=== PATIENT | male | born 1955 | race Caucasian/White ===

== ENCOUNTER 2016-06-30 15:48 | Emergency (ER) | payer BC, OTHER ==
[~2016-06-30] VITALS: Ht 172.7 cm; Wt 111.1 kg
[~2016-06-30 15:48] MED LIST: APIX5TAB2 PO; ASP325T PO; ASP81CT PO; CLN.1T PO; CLON-316 PO; DIGO250T PO; DILT360C26 PO; FRSM40T PO; LISI20TA PO; LOVA20TA2 PO; METO50TA7 PO; PANT40TA2 PO; POTA20LI2 PO; RANI75TA30 PO
[2016-06-30 16:28] LABS: BASOPHILS % (AUTO) 1 % (0-10); EOSINOPHILS # (AUTO) 0.1 10^3/uL (0.0-0.3); EOSINOPHILS % (AUTO) 1 % (0-10); LYMPHOCYTES # (AUTO) 1.1 X 10^3 (1.0-4.0); LYMPHOCYTES % (AUTO) 17 % (12-44); MEAN CORPUSCULAR HEMOGLOBIN 27 PG (25-34); MEAN CORPUSCULAR HGB CONC 33 G/DL (32-36); MEAN CORPUSCULAR VOLUME 81 FL (80-99); MONOCYTES # (AUTO) 0.8 X 10^3 (0.0-1.0); MONOCYTES % (AUTO) 12 % (0-12); NEUTROPHILS # (AUTO) 4.4 X 10^3 (1.8-7.8); NEUTROPHILS % (AUTO) 69 % (42-75); PLATELET COUNT 152 10^3/uL (130-400); RED BLOOD COUNT 5.12 10^6/uL (4.35-5.85); RED CELL DISTRIBUTION WIDTH 16.5 % (10.0-14.5); WHITE BLOOD COUNT 6.4 10^3/uL (4.3-11.0)
[2016-06-30] MEDS ORDERED: DILTIAZEM DRIP 100 MG in SODIUM CHLORIDE (ADD-VANTAGE) 100 ML IV SCH (16:30)
[2016-06-30] MEDS ORDERED: DILTIAZEM 25 MG/5 ML INJ (CARDIZEM) VIAL IVP ONE (16:30)
--- NOTE | 2016-06-30 16:32 | ED General ---
General Chief Complaint: Abdominal/GI Problems Stated Complaint: HERNIA Nursing Triage Note: Pt here to c/o chronic hernia issues known since 2012. Pt unaware BP elevated presently and has not done fu visits wTeresa Carrasco or Fernie scheduled in Feb/Mar. States pain along with SOA with walking alot or heavy lifting. Nursing Sepsis Screen: No Definite Risk Source of Information: Patient Exam Limitations: No Limitations History of Present Illness Time Seen by Provider: 16:28 Initial Comments To ER with several complaints. His initial complaint was of an umbilical hernia which is been present since 2012. He was evaluated by a surgeon and mechanical striper at that time and found to have congestive heart failure so surgery was postponed and ultimately never occurred. He denies any pain to this umbilical hernia, no nausea or vomiting and continues to pass gas and having bowel movements today. However upon arrival to the room he is noted to be tachycardic and he further reports a history of shortness of breath with any exertion, chest pain with exertion for the past 2-3 months. Symptoms today are no worse or different than usual. He has a history of atrial fibrillation and is on Eliquis, lasix, metoprolol. He has in the past followed with Dr. Carrasco and was supposed to follow up every 6 months with him. His most recent visit with Dr. Carrasco was scheduled to be in March 2016 but he states he was too far behind at work work and could not make the appointment. Medication list is provided by external medication history link as the patient is not able to verbalize to us what medications he takes or what his medical conditions are. Timing/Duration: 1-2 Days Severity: Moderate Associated Systoms: Chest PainNo Cough, No Fever/Chills, Shortness of AirNo Syncope, No Weakness Allergies and Home Medications Allergies Coded Allergies: No Known Drug Allergies (Unverified , 10/09/12) Home Medications Apixaban 5 Mg Tablet 5 MG PO BID (Reported) Aspirin 81 Mg Chew 81 MG PO DAILY (Reported) Digoxin 250 Mcg Tablet 250 MCG PO DAILY (Reported) Diltiazem Hcl 360 Mg Cap.sr.24h 360 MG PO DAILY (Reported) Furosemide 40 Mg Tab 80 MG PO DAILY (Reported) Lisinopril 20 Mg Tablet 20 MG PO DAILY (Reported) Lovastatin 20 Mg Tablet 20 MG PO DAILY WITH SUPPER (Reported) Metoprolol Succinate 50 Mg Tab.sr.24h 50 MG PO DAILY (Reported) Pantoprazole Sodium 40 Mg Tablet.dr #15 40 MG PO DAILY Prescribed by: RORY NEWMAN on 01/05/151 Potassium Chloride 20 Meq/15 Ml Liquid 10 MEQ PO DAILY (Reported) Ranitidine Hcl 75 Mg Tablet 150 MG PO NEEDED (Reported) PRN ACID Constitutional: see HPI EENTM: see HPI Respiratory: see HPINo cough, orthopnea short of breath Cardiovascular: see HPI chest pain (none currently but he does have chest pain with exertion) Musculoskeletal: no symptoms reported Skin: no symptoms reported Psychiatric/Neurological: No Symptoms Reported Hematologic/Lymphatic: No Symptoms Reported Past Wpsuxlj-Rohrkb-Rukunf Hx Patient Social History Alcohol Use: Rarely Uses Recreational Drug Use: No Smoking Status: Former Smoker Type Used: Cigars, Cigarettes Former Smoker/When Quit: Apr 16, 1974 Recent Foreign Travel: No Contact w/Someone Who Travel: No Recent Infectious Disease Expo: No Recent Hopitalizations: No Immunizations Up To Date Date of Pneumonia Vaccine: Oct 15, 2012 Seasonal Allergies Seasonal Allergies: No Surgeries HX Surgeries: Yes (KNEE ARTHROSCOPY, CARDIAC CATH. ) Surgeries: Orthopedic Respiratory Hx Respiratory Disorders: No Cardiovascular Hx Cardiac Disorders: Yes (CHF) Cardiac Disorders: Atrial Fibrillation, Hypertension Neurological Hx Neurological Disorders: No Reproductive System Hx Reproductive Disorders: No Genitourinary Hx Genitourinary Disorders: No Gastrointestinal Hx Gastrointestinal Disorders: Yes (HERNIA) Gastrointestinal Disorders: Abdominal Hernia, Gastroesophageal Reflux Musculoskeletal Hx Musculoskeletal Disorders: No Endocrine Hx Endocrine Disorders: Yes (OBESITY) HEENT HX ENT Disorders: No Cancer Hx Cancer: No Psychosocial Hx Psychiatric Problems: No Integumentary HX Skin/Integumentary Disorder: No Blood Transfusions Hx Blood Disorders: No Adverse Reaction to a Blood Tr: No Family Medical History Significant Family History: Heart Disease, Stroke Physical Exam Vital Signs Vital Sign - Last 12Hours 06/30/16 16:03 Temp 99.0 Pulse 128 Resp 20 B/P 131/104 Pulse Ox 95 O2 Delivery Room Air Capillary Refill : Less Than 3 Seconds General Appearance: No Apparent Distress WD/WN Eyes: Bilateral Eye EOMI, Bilateral Eye Normal Inspection, Bilateral Eye PERRL HEENT: PERRL/EOMI TMs Normal Neck: Full Range of Motion Normal Inspection Non Tender Respiratory: Lungs Clear Normal Breath Sounds No Accessory Muscle Use No Respiratory Distress Cardiovascular: Normal Peripheral Pulses Irregularly Irregular Other (atrial fibrillation noted on plant guide with a rate of 105 to a maximum of upper 120s) Gastrointestinal: Non Tender Soft Neurologic/Psychiatric: Alert Oriented x3 No Motor/Sensory Deficits Skin: Normal Color Warm/Dry Focused Exam Lactic Acid Level Laboratory Tests Test 06/30/16 16:15 Alanine Aminotransferase (ALT/SGPT) 13U/L (0-55) Albumin 3.6G/DL (3.2-4.5) Alkaline Phosphatase 74U/L (40-136) Anion Gap 10MMOL/L (5-14) Aspartate Amino Transf (AST/SGOT) 13U/L (5-34) B-Type Natriuretic Peptide 855.5PG/ML (<100.0) H BUN/Creatinine Ratio 15 Blood Urea Nitrogen 25MG/DL (7-18) H Calcium Level 9.0MG/DL (8.5-10.1) Carbon Dioxide Level 23MMOL/L (21-32) Chloride Level 106MMOL/L (98-107) Creatinine 1.62MG/DL (0.60-1.30) H Estimat Glomerular Filtration Rate 44 Glucose Level 94MG/DL (70-105) Magnesium Level 1.6MG/DL (1.8-2.4) L Potassium Level 4.1MMOL/L (3.6-5.0) Sodium Level 139MMOL/L (135-145) Total Bilirubin 1.9MG/DL (0.1-1.0) H Total Protein 5.9G/DL (6.4-8.2) L Troponin I < 0.30NG/ML (<0.30) Progress/Results/Core Measures Results/Orders Lab Results Laboratory Tests Test 06/30/16 16:15 Range/Units Alanine Aminotransferase (ALT/SGPT) 13 0-55 U/L Albumin 3.6 3.2-4.5 G/DL Alkaline Phosphatase 74 40-136 U/L Anion Gap 10 5-14 MMOL/L Aspartate Amino Transf (AST/SGOT) 13 5-34 U/L B-Type Natriuretic Peptide 855.5 H <100.0 PG/ML BUN/Creatinine Ratio 15 Basophils # (Auto) 0.0 0.0-0.1 10^3/uL Basophils (%) (Auto) 1 0-10 % Blood Urea Nitrogen 25 H 7-18 MG/DL Calcium Level 9.0 8.5-10.1 MG/DL Carbon Dioxide Level 23 21-32 MMOL/L Chloride Level 106 98-107 MMOL/L Creatinine 1.62 H 0.60-1.30 MG/DL Eosinophils # (Auto) 0.1 0.0-0.3 10^3/uL Eosinophils (%) (Auto) 1 0-10 % Estimat Glomerular Filtration Rate 44 Glucose Level 94 70-105 MG/DL Hematocrit 42 40-54 % Hemoglobin 13.6 13.3-17.7 G/DL Lymphocytes # (Auto) 1.1 1.0-4.0 X 10^3 Lymphocytes (%) (Auto) 17 12-44 % Magnesium Level 1.6 L 1.8-2.4 MG/DL Mean Corpuscular Hemoglobin 27 25-34 PG Mean Corpuscular Hemoglobin Concent 33 32-36 G/DL Mean Corpuscular Volume 81 80-99 FL Mean Platelet Volume 12.0 H 7.4-10.4 FL Monocytes # (Auto) 0.8 0.0-1.0 X 10^3 Monocytes (%) (Auto) 12 0-12 % Neutrophils # (Auto) 4.4 1.8-7.8 X 10^3 Neutrophils (%) (Auto) 69 42-75 % Platelet Count 152 130-400 10^3/uL Potassium Level 4.1 3.6-5.0 MMOL/L Red Blood Count 5.12 4.35-5.85 10^6/uL Red Cell Distribution Width 16.5 H 10.0-14.5 % Sodium Level 139 135-145 MMOL/L Total Bilirubin 1.9 H 0.1-1.0 MG/DL Total Protein 5.9 L 6.4-8.2 G/DL Troponin I < 0.30 <0.30 NG/ML White Blood Count 6.4 4.3-11.0 10^3/uL My Orders Orders-CATHY COOLEY PHYSICIAN'S AIDE Cbc With Automated Diff (06/30/16 16:21) Troponin I (06/30/16 16:21) Continuous Ekg Monitoring (06/30/16 16:21) Ekg Tracing (06/30/16 16:21) Saline Lock/Iv-Start (06/30/16 16:21) Chest 1 View, Ap/Pa Only (06/30/16 16:21) Magnesium (06/30/16 16:21) BNP (06/30/16 16:21) Sodium Chloride (Ad... W/Diltiazem Drip (06/30/16 16:30) Diltiazem Injection (Cardizem Injection) (06/30/16 16:30) Comprehensive Metabolic Panel (06/30/16 16:37) Furosemide Injection (Lasix Injection) (06/30/16 17:30) Medications Given in ED Current Medications Medications Dose Ordered Sig/Adryan Route Start Time Stop Time Status Last Admin Dose Admin Diltiazem HCl 5 mg ONCE ONCE IVP 06/30/16 16:30 06/30/16 16:31 DC 06/30/16 16:37 5 MG Furosemide 40 mg ONCE ONCE IVP 06/30/16 17:30 06/30/16 17:31 DC 06/30/16 17:28 40 MG Vital Signs/I&O Vital Sign - Last 12Hours 06/30/16 06/30/16 06/30/16 16:03 16:37 18:40 Temp 99.0 99.0 99.0 Pulse 128 128 124 Resp 20 20 20 B/P 131/104 131/104 Pulse Ox 95 95 97 O2 Delivery Room Air Blood Pressure Mean: 113 Diagnostic Imaging Diagonstic Imaging: Xray Plain Films/CT/US/NM/MRI: chest Comments NAME: SOPHIA ELLSWORTH [facility] REC#: [id number] PT STATUS: REG ER : 1955 PHYSICIAN: CATHY COOLEY APRN ADMIT DATE: 06/30/16/ER Draft Date of Exam:06/30/16 CHEST 1 VIEW, AP/PA ONLY EXAMINATION: Portable erect AP chest at 4:30 p.m. INDICATION: Shortness of breath. FINDINGS: The cardiomegaly noted on 01/05/2015 is again evident and no different. There are coarse perihilar markings in the left infrahilar region. These do seem more prominent than noted on the prior exam, and there could be an element of mild pneumonia/atelectasis in this area. Clinical followup is recommended. The lungs are otherwise clear. There is no sign of a pleural effusion. The mediastinum is not widened. The osseous structures are intact. IMPRESSION: 1. The prominence of the perihilar markings in the left infrahilar region when compared to the prior exam does raise the question of mild pneumonia/atelectasis in this area. Clinical followup is recommended. 2. There is no acute cardiopulmonary abnormality noted otherwise. Dictated on workstation # [id number] Dict: 06/30/16 1638 Trans: 06/30/16 1645 [id number] Interpreted by: FAUSTINO ESCAMILLA MD Electronically signed by: Arminda Communication Progress Notes [id number] did discuss the case with Dr. Emery who is on-call for cardiology. He does recommend a dose of IV Lasix here to improve the patient's symptoms and increasing the dose of Lasix from 3 times a week (with the patient states he takes) to daily for 3 days then 3 times a week. Patient's preference would be to be treated in the outpatient setting rather than admission. Dr. Emery agrees with this since the patient's findings of atrial fibrillation and CHF are incidental in nature and have been ongoing for 2-3 months and are known to his mechanical striper and no different today than previously. This is not what brought into the emergency room, it was his umbilical hernia as a chief complaint. We did give 1 dose of Cardizem 10 mg IV with no reduction in heart rate however did drop his blood pressure to [address] Emery would recommend increasing the Toprol-XL from 50 mg daily to 50 mg twice a day and follow-up with Dr. Carrasco in the outpatient setting. In regards to the umbilical hernia, this is not strangulated and there is no bowel obstruction so the patient should follow-up with a surgeon in the outpatient setting as well. Impression Impression: Primary Impression: Umbilical hernia Qualified Code: K42.9 - Umbilical hernia without obstruction or gangrene Additional Impressions: Chronic renal insufficiency Qualified Code: N18.9 - Chronic kidney disease, unspecified Atrial fibrillation Qualified Code: I48.1 - Persistent atrial fibrillation Stable angina Disposition: 01 HOME, SELF-CARE Condition: Stable Departure-Patient Inst. Decision time for Depature: 18:20 Referrals: BEE RICHTER BRETT D DO HAMMAD, ALI MD FACP FAC CCDS ERIN PINA MD, TAKAAKI MD PAONI, ADAM S DO (PCP/Family) Primary Care Physician Patient Instructions: CHF, Umbilical Hernia, Adult Add. Discharge Instructions: 1. Return to the emergency room if you develop any pain around the umbilical hernia, if he stopped passing gas or having bowel movements or if he started vomiting 2. Return to ER if you have any worsening shortness of breath, chest pain, passing out or feeling like he may pass out. Otherwise, I send a copy of your labs to Dr. Carrasco in your to call him Sunday morning at 8 a.m. to make an appointment to be seen next week. In the meantime, U should take your Lasix daily for the next 3 days starting tomorrow then go back to Lasix 3 times a week. 3. Your metoprolol that you take 1 time daily 50 mg should be increased to twice daily 4. You may also call one of the surgeons listed to make an appointment to be seen for the umbilical hernia. However they want you to be cleared from a cardiology standpoint prior to surgery and in fact may choose not to operate at all if this hernia is not causing you symptoms All discharge instructions reviewed with patient and/or family. Voiced understanding. Copy Copies To 1: JA CARRASCO MD FACP FACC CCDS; ROLANDO PARSONS PETER J APRN Jun 30, 2016 16:32
[2016-06-30 16:39] LABS: MAGNESIUM 1.6 MG/DL (1.8-2.4)
--- NOTE | 2016-06-30 16:46 | Diagnostic Imaging Report ---
EXAMINATION: Portable erect AP chest at 4:30 p.m. INDICATION: Shortness of breath. FINDINGS: The cardiomegaly noted on 01/05/2015 is again evident and no different. There are coarse perihilar markings in the left infrahilar region. These do seem more prominent than noted on the prior exam, and there could be an element of mild pneumonia/atelectasis in this area. Clinical followup is recommended. The lungs are otherwise clear. There is no sign of a pleural effusion. The mediastinum is not widened. The osseous structures are intact. IMPRESSION: 1. The prominence of the perihilar markings in the left infrahilar region when compared to the prior exam does raise the question of mild pneumonia/atelectasis in this area. Clinical followup is recommended. 2. There is no acute cardiopulmonary abnormality noted otherwise. Dictated by: Dictated on workstation # [id number]
[2016-06-30 16:52] LABS: TROPONIN I < 0.30 NG/ML (<0.30)
[2016-06-30 16:55] LABS: ALBUMIN 3.6 G/DL (3.2-4.5); BILIRUBIN,TOTAL 1.9 MG/DL (0.1-1.0); CREATININE SERUM 1.62 MG/DL (0.60-1.30); POTASSIUM 4.1 MMOL/L (3.6-5.0); TOTAL PROTEIN 5.9 G/DL (6.4-8.2)
[2016-06-30] MEDS ORDERED: FUROSEMIDE 40 MG/4 ML INJ (LASIX) IVP ONE (17:30)
[2016-06-30 18:40] VITALS: BP 128/95
== END 2016-06-30 18:40 | disposition home or self-care (01) ==
LOC: EDUNIT# 15:48 → ER 15:50
DX: K42.9 Umbilical hernia without obstruction or gangrene (principal); I48.2 Chronic atrial fibrillation; I12.9 Hypertensive chronic kidney disease with stage 1 through stage 4 chronic kidney disease, or unspecified chronic kidney disease; N18.9 Chronic kidney disease, unspecified; E66.9 Obesity, unspecified; Z79.82 Long term (current) use of aspirin; Z79.899 Other long term (current) drug therapy; Z87.891 Personal history of nicotine dependence
CPT/HCPCS: 36415; 71010; 80053; 83735; 83880; 84484; 85025; 93005; 96365; 96375

== ENCOUNTER → 2016-07-14 | Outpatient (CLI) | payer BC ==
[~2016-07-14] MED LIST changes: +ALPH1TAB8 PO; +APIX5TAB PO; +DILT240C53 PO; +FURO40TA4 PO; +LISI-552 PO; +METO-274 PO; +PANT40TA3 PO; +POTA10TA10 PO
--- NOTE | 2016-07-15 09:06 | ECHOCARDIOGRAPHY REPORT ---
PROCEDURE PHYSICIAN: JA DILLON DATE OF PROCEDURE: 07/14/2016 TWO DIMENSIONAL ECHOCARDIOGRAM REPORT PRIMARY PHYSICIAN: OTHER PHYSICIAN: REFERRING PHYSICIAN: Dr. Enciso ORDERING PHYSICIAN: INDICATION FOR THE PROCEDURE: 1. Congestive heart failure. 2. Paroxysmal atrial fibrillation. MEASUREMENTS DERIVED VALUES LV DIAMETER (LAX) NORMALS NORMALS Diastolic 5.2 (3.6-5.2) Eject. Fract. (60%+/-6%) Systolic (2.3-3.9) Diastolic Vol. % Shortening (0.22-0.42) Systolic Vol. Aortic Root IVS THICKNESS Diastolic 1.3 (0.6-1.1) LVPW THICKNESS Diastolic 1.2 (0.6-1.1) LA DIAMETER Systolic 4.4 (2.1-3.7) DESCRIPTION: Two-dimensional echocardiography shows marked impairment of global left ventricular systolic function. Left ventricular ejection fraction is approximately 25%. Aortic, mitral and tricuspid valve leaflets show good leaflet excursion. There is global hypokinesis of the left ventricle. Doppler imaging shows mild mitral and tricuspid regurgitation. Is mild enlargement of the left atrium. There is mild concentric left ventricular hypertrophy. There is no significant pericardial effusion. There is no Doppler evidence of any significant valvular stenosis. Pulmonary artery systolic pressure is estimated to be approximately 30 mmHg. There is no evidence of any significant intracardiac shunt on this transthoracic echocardiographic study. Inferior vena cava appears to be moderately dilated. It exhibits partial inspiratory collapse. CONCLUSIONS: 1. Impairment of global left ventricular systolic function with global hypokinesis and left ventricular ejection fraction of approximately 25%. 2. Mild mitral and tricuspid regurgitation. 3. Pulmonary artery systolic pressure is estimated to be approximately 30 mmHg. 4. No evidence of significant valvular stenosis. 5. Mild concentric left ventricular hypertrophy. Job ID: [id number] Dictated Date: 07/14/2016 17:19:28 Business Strategist Date: 07/15/2016 08:59:30 / cass
== END ==
LOC: CARD 13:04
PROVIDERS: ATTEND Internal Medicine Cardiovascular Disease
DX: I48.0 Paroxysmal atrial fibrillation (principal); I50.31 Acute diastolic (congestive) heart failure; K42.9 Umbilical hernia without obstruction or gangrene; G47.39 Other sleep apnea
CPT/HCPCS: 93306

== ENCOUNTER 2016-07-18 08:08 | Day surgery (SDC) | payer BC ==
[~2016-07-18] VITALS: Ht 172.7 cm; Wt 110.3 kg
[2016-07-18] VITALS (13 sets, daily range): BP systolic 104–133; BP diastolic 71–97
[~2016-07-18 08:08] MED LIST changes: -ALPH1TAB8 PO; -APIX5TAB PO; -DILT240C53 PO; -FURO40TA4 PO; -LISI-552 PO; -METO-274 PO; -PANT40TA3 PO; -POTA10TA10 PO
[2016-07-18] MEDS ORDERED: NS IV 1000 ML 1,000 ML IV SCH (08:30)
[2016-07-18] MEDS ORDERED: NS IV 1000 ML 1,000 ML ONE (08:35)
[2016-07-18] MEDS ORDERED: HEParin (CATH LAB) 2,000 ML IV ONE (08:35)
[2016-07-18] MEDS ORDERED: LIDOCAINE 1% INJ 20 ML (XYLOCAINE) VIAL ONE (08:35)
[2016-07-18 09:08] LABS: INR 1.4 (0.8-1.4); PROTHROMBIN TIME PATIENT 16.8 SEC (12.2-14.7)
[2016-07-18 09:20] LABS: BILIRUBIN,TOTAL 1.5 MG/DL (0.1-1.0); CALCIUM 9.4 MG/DL (8.5-10.1); CREATININE SERUM 1.76 MG/DL (0.60-1.30); POTASSIUM 4.1 MMOL/L (3.6-5.0); TOTAL PROTEIN 7.1 G/DL (6.4-8.2)
[2016-07-18] MEDS ORDERED: POTA10TA10 PO (09:35)
[2016-07-18] MEDS ORDERED: METO-274 PO (09:35)
[2016-07-18] MEDS ORDERED: PANT40TA3 PO (09:35)
[2016-07-18] MEDS ORDERED: LOVA20TA2 PO (09:35)
[2016-07-18] MEDS ORDERED: APIX5TAB PO (09:35)
[2016-07-18] MEDS ORDERED: LISI-552 PO (09:35)
[2016-07-18] MEDS ORDERED: ALPH1TAB8 PO (09:39)
[2016-07-18] MEDS ORDERED: FURO40TA4 PO (09:39)
[2016-07-18] MEDS ORDERED: DILT240C53 PO (09:39)
[2016-07-18 10:39] LABS: MEAN PLATELET VOLUME 12.7 FL (7.4-10.4); RED BLOOD COUNT 5.49 10^6/uL (4.35-5.85); RED CELL DISTRIBUTION WIDTH 18.5 % (10.0-14.5)
[2016-07-18] MEDS ORDERED: fentaNYL INJECTION 100 MCG/2 ML AMP ONE (10:50)
[2016-07-18] MEDS ORDERED: MIDAZOLAM 5 MG/5 ML (VERSED) VIAL ONE (10:50)
[2016-07-18] MEDS ORDERED: diphenhydrAMINE 50 MG/ML INJ (BENADRYL) ONE (10:51)
--- NOTE | 2016-07-18 11:08 | Cardiac Procedure Note-CS/ASA ---
Pre-Procedure Note Pre-Op Procedure Note H&P Reviewed The H&P was reviewed, patient examined and no changes noted. Date H&P Reviewed: Jul 18, 2016 Time H&P Reviewed: 11:08 Conscious Sedation Pre-Proced Time Reviewed: 11:08 ASA Class: 3 Airway Mallampati Classification: (prairie band appropriate class) I. II. III, IV Lungs Heart ASA score ASA 1: a normal healthy patient ASA 2: a patient with a mild systemic disease (mid diabetes, controlled hypertension, obesity ASA 3: a patient with a severe systemic disease that limits activity (angina , COPD, prior Myocardial infarction) ASA 4: a patient with an incapacitating disease that is a constant threat to life (CHF, renal failure) ASA 5: a moribund patient not expected to survive 24 hrs. (ruptured aneurysm) ASA 6: a declared brain patient whose organs are being harvested. For emergent operations, add the letter E after the classification Grade 3 Sedation Plan: Analgesia, Amnesia, Plan communicated to team members, Discussed options with patient/fam, Discussed risks with patient/fam Note The patient is an appropriate candidate to undergo the planned procedure, sedation, and anesthesia. The patient immediately re-assessed prior to indication. JA DILLON MD FACP FAC CCDS Jul 18, 2016 11:08
[2016-07-18] MEDS: NS IV 1000 ML 1,000 ML IV SCH ×2 (11:55→17:28)
[2016-07-18] MEDS ORDERED: PATIENT MAY USE OWN MEDS, ALL PO SCH (12:00)
[2016-07-18] MEDS ORDERED: DIGOXIN 0.25 MG/ML (LANOXIN) 2 ML AMP IV NR (12:00)
[2016-07-18] MEDS ORDERED: FUROSEMIDE 40 MG/4 ML INJ (LASIX) IVP NR (12:00)
[2016-07-18] MEDS ORDERED: meTOprolol SUCCINATE 100 MG (TOPROL XL) TAB PO NR (18:30)
[2016-07-18] MEDS: APIXABAN 5 MG (ELIQUIS) TABLET PO SCH (20:12)
[2016-07-18] MEDS ORDERED: ALPHA D GALACTOSIDASE PO SCH (21:00)
[2016-07-18] MEDS ORDERED: SIMvastatin 10 MG (ZOCOR) TAB PO SCH (21:00)
[2016-07-19] MEDS: NS IV 1000 ML 1,000 ML IV SCH (03:35)
[2016-07-19 04:00] VITALS: BP 106/89
[2016-07-19 04:08] LABS: MEAN PLATELET VOLUME 12.1 FL (7.4-10.4); RED BLOOD COUNT 5.18 10^6/uL (4.35-5.85); WHITE BLOOD COUNT 6.2 10^3/uL (4.3-11.0)
[2016-07-19 04:37] LABS: CALCIUM 8.7 MG/DL (8.5-10.1); CREATININE SERUM 1.63 MG/DL (0.60-1.30); POTASSIUM 4.2 MMOL/L (3.6-5.0)
[2016-07-19 07:54] VITALS: BP 135/85
[2016-07-19] MEDS: APIXABAN 5 MG (ELIQUIS) TABLET PO SCH (07:57)
--- NOTE | 2016-07-19 08:45 | Progress Note-Cardiology ---
Cardiology SOAP Progress Note Subjective: Sitting up in bed. No c/o CP, SOB, palpitations, syncope or near syncope. No c /o right groin pain. Objective: I&O/Vital Signs Vital Sign - Last 12Hours 07/18/16 07/19/16 07/19/16 07/19/16 23:57 01:00 04:00 07:03 Temp 98.4 96.8 Pulse 84 94 87 94 Resp 19 18 B/P (MAP) 122/83 106/89 Pulse Ox 91 99 O2 Delivery Room Air Room Air 07/19/16 07:54 Temp 97.5 Pulse 68 Resp 18 B/P (MAP) 135/85 Pulse Ox 98 O2 Delivery Room Air Weight (Pounds): 243 Weight (Ounces): 3.0 Weight (Calculated Kilograms): 110.988797 Side: right Condition: DP/PT pulses palpable, extremity w/d/p Constitutional: AAO x 3 Respiratory: accessory muscle use, respiratory distress, chest expansion is symmetric, chest is bilaterally symmetric, lungs clear to auscultation Cardiovascular: irregularly irregular, No JVD, S1 and S2 Gastrointestional: No tender, soft, round, audible bowel sounds Extremities: No significant edema Neurologic/Psychiatric: grossly intact Results/Procedures: Labs Laboratory Tests 07/19/16 03:40: White Blood Count 6.2, Red Blood Count 5.18, Hemoglobin 13.6, Hematocrit 43, Mean Corpuscular Volume 82, Mean Corpuscular Hemoglobin 26, Mean Corpuscular Hemoglobin Concent 32, Red Cell Distribution Width 18.0H, Platelet Count 188, Mean Platelet Volume 12.1H, Sodium Level 139, Potassium Level 4.2, Chloride Level 105, Carbon Dioxide Level 22, Anion Gap 12, Blood Urea Nitrogen 35H, Creatinine 1.63H, Estimat Glomerular Filtration Rate 44, BUN/Creatinine Ratio 21 , Glucose Level 99, Calcium Level 8.7 Procedures S/P cardiac cath on 07-18-16. Please refer to Dr. Dillon's cardiac cath report for details. A/P: Assessment: Cardiac cath of July 18, 2016 showed mild to mod diffuse CAD which is unchanged from cardiac cath of September 2012. Mod elevated LVEDP. Chronic systolic CHF (presentation to ER on 06/30/16) - clinically compensated MPI of January 21, 2015 indicated a small amount of basal interior ischemia. Normal regional wall motion. LVEF 71%. Normal LV cavity size The patient is currently in a fib with a fairly controlled rate Nonischemic cardiomyopathy during initial diagnosis with atrial fibrillation several years ago. CM had resolved, but most recent echo of 07/14/16 shows recurrence: LVEF 25%, global hypokinesis, PASP 30 mmHg, mild conc LVH Chronic antiocoagulation with Eliquis Suspected sleep apnea syndrome for which studies have been advised but he has not followed through. Obesity with a body mass index of approximately 37.25. Weight loss has been advised . History of hypertension, currently controlled. Hyperlipidemia, being treated with lovastatin, managed by Dr Enciso. Chronic, reducible umbilical hernia, followed by his pcp Plan: OK to discharge home today He is unclear at times regarding his home medications, therefore, compliance is a concern. We consults Home Health for home visit to help set up medications. Continue current regimen Life Vest external defib has been ordered. rep Negro from [employer] will be her later today to place. We have discussed importance of compliance with medications and treatment plan. He verbalizes understanding. Lab in a week Out patient f/u in [address] Sanchez for out patient sleep studies Physician Assessment Physician Assessment Lungs: good air entry Cor: irreg, rate better controlled A&R * As documented in our note above * Complex management * [facility] and Home Health consult to help with meds at home * Close outpatient f/u * Compliance with meds advised * Results of cath reviewed and discussed GEOVANI FORTUNE Jul 19, 2016 08:45 JA DILLON MD [facility] Jul 19, 2016 09:58
[2016-07-19] MEDS ORDERED: meTOprolol SUCCINATE 100 MG (TOPROL XL) TAB PO SCH (09:00)
[2016-07-19] MEDS ORDERED: lisINopril 20 MG (ZESTRIL) TAB PO SCH (09:00)
[2016-07-19] MEDS ORDERED: PANTOPRAZOLE 40 MG (PROTONIX) TAB PO SCH (09:00)
[2016-07-19] MEDS ORDERED: ASPIRIN 81 MG CHEW (CHILDREN'S ASA) PO SCH (09:00)
[2016-07-19] MEDS ORDERED: DILTIAZEM 240 MG (CARDIZEM CD) CAP PO SCH (09:00)
[2016-07-19] MEDS ORDERED: KCL 10 MEQ TAB (MICRO K) PO SCH (09:00)
[2016-07-19] MEDS ORDERED: FUROSEMIDE 40 MG (LASIX) TAB PO SCH (09:00)
--- NOTE | 2016-07-19 09:26 | Discharge Inst-Cardiology ---
Discharge Inst-Cardiac Discharge Medications Continued Medications: [id number]-Oycwclxhskuwc (Beano) 150 Unit Tablet 450 UNIT PO BID, TAB Apixaban (Eliquis) 5 Mg Tablet 5 MG PO BID LAST FILLED 06/12/16 #60 Aspirin (Aspirin 81 Mg Chew Tab) 81 Mg Chew 81 MG PO DAILY Diltiazem HCl (Cartia Xt) 240 Mg Cap.er.24h 240 MG PO DAILY, CAP HAS NOT PICKED UP FROM PHARMACY YET Furosemide (Furosemide) 40 Mg Tablet 40 MG PO DAILY, TAB Lisinopril (Lisinopril) 20 Mg Tablet 20 MG PO DAILY Lovastatin (Lovastatin) 20 Mg Tablet 20 MG PO HS Metoprolol Succinate (Metoprolol Succinate) 100 Mg Tab.er.24h 100 MG PO DAILY Pantoprazole Sodium (Pantoprazole Sodium) 40 Mg Tablet.dr 40 MG PO DAILY Potassium Chloride (Potassium Chloride) 10 Meq Tablet.er 10 MEQ PO DAILY Patient Instructions Patient Instructions: Please schedule follow up appt to see Dr. Carrasco in 3 weeks Lab: BMP in one week GEOVANI FORTUNE Jul 19, 2016 09:26
--- NOTE | 2016-07-19 11:19 | CARDIAC CATHETERIZATION ---
PROCEDURE PHYSICIAN: JA DILLON DATE OF PROCEDURE: 07/18/2016 Henry Leblanc is a 61-year-old man who has been diagnosed with dilated cardiomyopathy on echocardiography carried out a few days ago. Previously, he has a history of cardiomyopathy from which he had recovered but this now appears recurrent. Cardiac catheterization was carried out to evaluate for coronary artery disease as the base of his cardiomyopathy. An informed consent was obtained. PROCEDURE: He was brought to the cardiac catheter laboratory in a fasting state. Vigorous perioperative hydration was initiated before the procedure, continued throughout the procedure and is to be continued afterwards. This is because of his chronic kidney disease, stage III to IV. The right groin was prepared and draped in usual sterile fashion. 1% lidocaine was used for local anesthesia. Modified Seldinger technique was used to advance a 5-[place] sheath in the right femoral artery. Angiography of the right femoral artery was carried out through the sheath. A 5-[place] JL4 catheter was used for left coronary angiography, 5-[place] JR4 catheter was used for right coronary angiography. 5-[place] pigtail catheter was used for left heart catheterization. Left ventricular angiography was not performed to conserve contrast, given his chronic kidney disease. HEMODYNAMICS: Left ventricular end diastolic pressure following coronary angiography was 18 mmHg. There is no significant pressure gradient on pullback across the aortic valve. Ascending aortic pressure 98/75 with a mean 84 mmHg. LEFT VENTRICULAR ANGIOGRAPHY: Left ventricular angiography was not performed to conserve contrast. CORONARY ANGIOGRAPHY: The left main coronary artery, left anterior descending artery, left circumflex artery, right coronary artery all exhibit mild diffuse plaques. Coronary flow is somewhat sluggish, likely due to patient's cardiomyopathy. No significant obstructive disease is seen. Right coronary artery is dominant. CONCLUSION: 1. Angiographically mild coronary artery disease. 2. Elevated left ventricular end-diastolic pressure. DISCUSSION AND RECOMMENDATIONS: Continuing efforts at optimal medical therapy. External defibrillator vest has been arranged. Close outpatient follow-up is advised. He is being hospitalized for overnight observation following today's procedure, given chronic kidney disease. Job ID: [id number] Dictated Date: 07/18/2016 11:50:46 Field Evidence Technician Date: 07/19/2016 11:11:28 / tad
--- OUTSIDE RECORDS SUMMARY | 2016-08-20 13:27 | XMS REPORT | Continuity of Care Document ---
Author Author [facility] Organization [facility] Address Unknown Phone Unavailable Allergies Active Description Code Type Severity Reaction Onset Reported/Identified Relationship to Patient Clinical Status Yes No Known Drug Allergies [id number] Drug Allergy Unknown N/ A 10/09/2012 Medications Problems Date Dx Coded Attending Type Code Diagnosis Diagnosed By 10/15/2012 WILMA CASANOVA FACC, JA FACP CCDS Ot 272.4 10/15/2012 WILMA CASANOVA FACC, ALI FACP CCDS Ot 275.2 10/15/2012 WILMA CASANOVA FACC, ALI FACP CCDS Ot 278.00 10/15/2012 WILMA WITTC, ALI FACP CCDS Ot 401.9 10/15/2012 WILMA CASANOVA FACC, ALI FACP CCDS Ot 414.01 10/15/2012 WILMA WITT, ALI FACP CCDS Ot 425.4 10/15/2012 WILMA WITT, ALI FACP CCDS Ot 427.31 10/15/2012 WILMA CASANOVA FACC, ALI FACP CCDS Ot 428.0 10/15/2012 WILMA WITT, ALI FACP CCDS Ot 428.21 10/15/2012 WILMA WITT, ALI FACP CCDS Ot 530.81 10/15/2012 WILMA WITT, ALI FACP CCDS Ot 584.9 10/15/2012 WILMA WITT, ALI FACP CCDS Ot 780.57 10/15/2012 WILMA CASANOVA FACC, ALI FACP CCDS Ot V85.39 10/15/2012 WILMA CASANOVA FACC, ALI FACP CCDS Ot V85.42 01/05/2015 GEOVANI FORTUNE DIRECTOR CHILD ABUSE THERAPY Ot 272.4 01/05/2015 GEOVANI FORTUNE DIRECTOR CHILD ABUSE THERAPY Ot 401.9 01/05/2015 GEOVANI FORTUNE DIRECTOR CHILD ABUSE THERAPY Ot 427.31 01/05/2015 GEOVANI FORTUNE DIRECTOR CHILD ABUSE THERAPY Ot V58.69 01/05/2015 TRENT DO, RORY K Ot 309.9 ADJUSTMENT REACTION NOS 01/05/2015 TRENT DO, RORY K Ot 311 DEPRESSIVE DISORDER NEC 01/05/2015 TRENT DO, RORY K Ot 401.9 HYPERTENSION NOS 01/05/2015 TRENT DOMARCYA K Ot 427.31 ATRIAL FIBRILLATION 01/05/2015 TRENT MARCY BROOKSA K Ot 428.0 CONGESTIVE HEART FAILURE NOS 01/05/2015 TRENT MARCY BROOKSA K Ot 553.1 UMBILICAL HERNIA 01/05/2015 TRENT MARCY BROOKSA K Ot 593.9 RENAL URETERAL DIS NOS 01/05/2015 TRENT DOMARCYA K Ot 786.50 CHEST PAIN NOS 01/05/2015 TRENT MARCY BROOKSA K Ot V58.61 ANTICOAGULANTS,LT,CURRENT USE 01/05/2015 TRENT MARCY BROOKSA K Ot V58.69 OTH MED,LT,CURRENT USE 02/25/2015 WILMA CASANOVA FACC, JA FACP CCDS Ot 272.4 02/25/2015 WILMA CASANOVA FACC, ALI FACP CCDS Ot 425.4 02/25/2015 WILMA CASANOVA FACC, ALI FACP CCDS Ot V58.69 02/25/2015 BAIMA, GEOVANI L DIRECTOR CHILD ABUSE THERAPY Ot 790.6 02/25/2015 BAIMA, GEOVANI L DIRECTOR CHILD ABUSE THERAPY Ot 397.0 02/25/2015 BAIMA, GEOVANI L DIRECTOR CHILD ABUSE THERAPY Ot 424.0 02/25/2015 BAIMA, GEOVANI L DIRECTOR CHILD ABUSE THERAPY Ot 425.4 02/25/2015 BAIMA, GEOVANI L DIRECTOR CHILD ABUSE THERAPY Ot 272.4 02/25/2015 BAIMA, GEOVANI L DIRECTOR CHILD ABUSE THERAPY Ot 401.9 02/25/2015 BAIMA, GEOVANI L DIRECTOR CHILD ABUSE THERAPY Ot 427.31 02/25/2015 BAIMA, GEOVANI L DIRECTOR CHILD ABUSE THERAPY Ot V58.69 02/25/2015 WILMA CASANOVA FACC, ALI FACP CCDS Ot E78.5 02/25/2015 WILMA CASANOVA FACC, ALI FACP CCDS Ot G47.30 02/25/2015 WILMA CASANOVA FACC, ALI FACP CCDS Ot I10 02/25/2015 WILMA CASANOVA FACC, ALI FACP CCDS Ot I42.8 02/25/2015 WILMA CASANOVA FACC, ALI FACP CCDS Ot I48.91 02/25/2015 WILMA MD FACC, ALI FACP CCDS Ot R07.9 02/25/2015 WILMA CASANOVA FACC, ALI FACP CCDS Ot 272.4 02/25/2015 WILMA CASANOVA FACC, ALI FACP CCDS Ot 425.4 02/25/2015 WILMA CASANOVA FACC, ALI FACP CCDS Ot V58.69 02/25/2015 BAIMA, GEOVANI L DIRECTOR CHILD ABUSE THERAPY Ot 790.6 02/25/2015 BAIMA, GEOVANI L DIRECTOR CHILD ABUSE THERAPY Ot 397.0 02/25/2015 BAIMA, GEOVANI L DIRECTOR CHILD ABUSE THERAPY Ot 424.0 02/25/2015 BAIMA, GEOAVNI L DIRECTOR CHILD ABUSE THERAPY Ot 425.4 02/25/2015 BAIMA, GEOVANI L DIRECTOR CHILD ABUSE THERAPY Ot 272.4 02/25/2015 BAIMA, GEOVANI L DIRECTOR CHILD ABUSE THERAPY Ot 401.9 02/25/2015 BAIMA, GEOVANI L DIRECTOR CHILD ABUSE THERAPY Ot 427.31 02/25/2015 BAIMA, GEOVANI L DIRECTOR CHILD ABUSE THERAPY Ot V58.69 02/25/2015 WILMA CASANOVA FACC, ALI FACP CCDS Ot E78.5 02/25/2015 WILMA CASANOVA FACC, ALI FACP CCDS Ot G47.30 02/25/2015 WILMA CASANOVA FACC, ALI FACP CCDS Ot I10 02/25/2015 WILMA CASANOVA FACC, ALI FACP CCDS Ot I42.8 02/25/2015 WILMA CASANOVA FACC, ALI FACP CCDS Ot I48.91 02/25/2015 WILMA CASANOVA FACC, ALI FACP CCDS Ot R07.9 03/19/2015 WILMA CASANOVA FACC, ALI FACP CCDS Ot E78.5 03/19/2015 WILMA CASANOVA FACC, ALI FACP CCDS Ot G47.30 03/19/2015 WILMA CASANOVA FACC, ALI FACP CCDS Ot I10 03/19/2015 WILMA CASANOVA FACC, ALI FACP CCDS Ot I42.8 03/19/2015 WILMA CASANOVA FACC, ALI FACP CCDS Ot I48.91 03/19/2015 WILMA CASANOVA FACC, ALI FACP CCDS Ot R07.9 04/12/2015 WILMA CASANOVA FACC, ALI FACP CCDS Ot E78.5 04/12/2015 WILMA CASANOVA FACC, ALI FACP CCDS Ot G47.30 04/12/2015 WILMA CASANOVA FACC, ALI FACP CCDS Ot I10 04/12/2015 WILMA CASANOVA FACC, ALI FACP CCDS Ot I42.8 04/12/2015 WILMA CASANOVA FACC, ALI FACP CCDS Ot I48.91 04/12/2015 WILMA CASANOVA FACC, ALI FACP CCDS Ot R07.9 04/12/2015 BAIMA, GEOVANI L DIRECTOR CHILD ABUSE THERAPY Ot 272.4 04/12/2015 BAIMA, GEOVANI L DIRECTOR CHILD ABUSE THERAPY Ot 401.9 04/12/2015 BAIMA, GEOVANI L DIRECTOR CHILD ABUSE THERAPY Ot 427.31 04/12/2015 BAIMA, GEOVANI L DIRECTOR CHILD ABUSE THERAPY Ot V58.69 04/14/2015 BAIMA, GEOVANI L DIRECTOR CHILD ABUSE THERAPY Ot 272.4 04/14/2015 BAIMA, GEOVANI L DIRECTOR CHILD ABUSE THERAPY Ot 401.9 04/14/2015 BAIMA, GEOVANI L DIRECTOR CHILD ABUSE THERAPY Ot 427.31 04/14/2015 BAIMA, GEOVANI L DIRECTOR CHILD ABUSE THERAPY Ot V58.69 04/14/2015 WILMA WITT, ALI FACP CCDS Ot E78.5 04/14/2015 WILMA WITT, ALI FACP CCDS Ot G47.30 04/14/2015 WILMA WITT, ALI FACP CCDS Ot I10 04/14/2015 WILMA WITT, ALI FACP CCDS Ot I42.8 04/14/2015 WILMA WITT, ALI FACP CCDS Ot I48.91 04/14/2015 WILMA WITT, ALI FACP CCDS Ot R07.9 06/30/2016 BAIMA, GEOVANI L DIRECTOR CHILD ABUSE THERAPY Ot 272.4 HYPERLIPIDEMIA NEC/NOS 06/30/2016 BAIMA, GEOVANI L DIRECTOR CHILD ABUSE THERAPY Ot 401.9 HYPERTENSION NOS 06/30/2016 BAIMA, GEOVANI L DIRECTOR CHILD ABUSE THERAPY Ot 427.31 ATRIAL FIBRILLATION 06/30/2016 BAIMA, GEOVANI L DIRECTOR CHILD ABUSE THERAPY Ot V58.69 OT MED,LT,CURRENT USE 06/30/2016 WILMA CASANOVA FACC, ALI FACP CCDS Ot E78.5 HYPERLIPIDEMIA, UNSPECIFIED 06/30/2016 WILMA CASANOVA FACC, ALI FACP CCDS Ot G47.30 SLEEP APNEA, UNSPECIFIED 06/30/2016 WILMA CASANOVA FACC, ALI FACP CCDS Ot I10 ESSENTIAL (PRIMARY) HYPERTENSION 06/30/2016 WILMA CASANOVA FACC, JA FACP CCDS Ot I42.8 OTHER CARDIOMYOPATHIES 06/30/2016 WILMA CASANOVA FACC, JA FACP CCDS Ot I48.91 UNSPECIFIED ATRIAL FIBRILLATION 06/30/2016 WILMA CASANOVA FACC, JA FACP CCDS Ot R07.9 CHEST PAIN, UNSPECIFIED 06/30/2016 CATHY COOLEY NETWORKING TECHNOLOGY INSTRUCTOR Ot E66.9 OBESITY, UNSPECIFIED 06/30/2016 CATHY COOLEY NETWORKING TECHNOLOGY INSTRUCTOR Ot I12.9 HYPERTENSIVE CHRONIC KIDNEY DISEASE W ST 06/30/2016 CATHY COOLEY NETWORKING TECHNOLOGY INSTRUCTOR Ot I48.2 CHRONIC ATRIAL FIBRILLATION 06/30/2016 CATHY COOLEY NETWORKING TECHNOLOGY INSTRUCTOR Ot K42.9 UMBILICAL HERNIA WITHOUT OBSTRUCTION OR 06/30/2016 CATHY COOLEY NETWORKING TECHNOLOGY INSTRUCTOR Ot N18.9 CHRONIC KIDNEY DISEASE, UNSPECIFIED 06/30/2016 CATHY COOLEY NETWORKING TECHNOLOGY INSTRUCTOR Ot Z79.82 MCC (CURRENT) USE OF ASPIRIN 06/30/2016 CATHY COOLEY NETWORKING TECHNOLOGY INSTRUCTOR Ot Z79.899 OTHER [facility] (CURRENT) DRUG THERAPY 06/30/2016 CATHY COOLEY NETWORKING TECHNOLOGY INSTRUCTOR Ot Z87.891 PERSONAL HISTORY OF NICOTINE DEPENDENCE 07/03/2016 CATHY COOLEY APRN Ot E66.9 OBESITY, UNSPECIFIED 07/03/2016 CATHY COOLEY NETWORKING TECHNOLOGY INSTRUCTOR Ot I12.9 HYPERTENSIVE CHRONIC KIDNEY DISEASE W ST 07/03/2016 CATHY COOLEY NETWORKING TECHNOLOGY INSTRUCTOR Ot I48.2 CHRONIC ATRIAL FIBRILLATION 07/03/2016 CATHY COOLEY APRN Ot K42.9 UMBILICAL HERNIA WITHOUT OBSTRUCTION OR 07/03/2016 CATHY COOLEY NETWORKING TECHNOLOGY INSTRUCTOR Ot N18.9 CHRONIC KIDNEY DISEASE, UNSPECIFIED 07/03/2016 CATHY COOLEY NETWORKING TECHNOLOGY INSTRUCTOR Ot Z79.82 MCC (CURRENT) USE OF ASPIRIN 07/03/2016 CATHY COOLEY NETWORKING TECHNOLOGY INSTRUCTOR Ot Z79.899 OTHER [facility] (CURRENT) DRUG THERAPY 07/03/2016 CATHY COOLEY NETWORKING TECHNOLOGY INSTRUCTOR Ot Z87.891 PERSONAL HISTORY OF NICOTINE DEPENDENCE 07/28/2016 WILMA CASANOVA FACC, JA WITTP CCDS Ot G47.39 OTHER SLEEP APNEA 07/28/2016 WILMA CASANOVA FACC, JA WITTP CCDS Ot I48.0 PAROXYSMAL ATRIAL FIBRILLATION 07/28/2016 WILMA CASANOVA FACC, JA SPAULDING CCDS Ot I50.31 ACUTE DIASTOLIC (CONGESTIVE) HEART FAILU 07/28/2016 JA DILLON MD, FACC, FACP CCDS Ot K42.9 UMBILICAL HERNIA WITHOUT OBSTRUCTION OR Procedures Results Test Result Range Complete blood count (CBC) with automated white blood cell (WBC) differential - 06/30/16 16:15 Blood leukocytes automated count (number/volume) 6.4 10*3/ uL 4.3-11.0 Blood erythrocytes automated count (number/volume) 5.12 10*6 /uL 4.35-5.85 Venous blood hemoglobin measurement (mass/volume) 13.6 g/dL 13.3-17.7 Blood hematocrit (volume fraction) 42 % 40-54 Automated erythrocyte mean corpuscular volume 81 [foz_us] 80-99 Automated erythrocyte mean corpuscular hemoglobin (mass per erythrocyte) 27 pg 25-34 Automated erythrocyte mean corpuscular hemoglobin concentration measurement ( mass/volume) 33 g/dL 32-36 Automated erythrocyte distribution width ratio 16.5 % 10.0-14.5 Automated blood platelet count (count/volume) 152 10*3/uL 130-400 Automated blood platelet mean volume measurement 12.0 [foz_ us] 7.4-10.4 Automated blood neutrophils/100 leukocytes 69 % 42-75 Automated blood lymphocytes/100 leukocytes 17 % 12-44 Blood monocytes/100 leukocytes 12 % 0-12 Automated blood eosinophils/100 leukocytes 1 % 0-10 Automated blood basophils/100 leukocytes 1 % 0-10 Blood neutrophils automated count (number/volume) 4.4 10*3 1.8-7.8 Blood lymphocytes automated count (number/volume) 1.1 10*3 1.0-4.0 Blood monocytes automated count (number/volume) 0.8 10*3 0.0-1.0 Automated eosinophil count 0.1 10*3/uL 0.0-0.3 Automated blood basophil count (count/volume) 0.0 10*3/uL 0.0-0.1 Magnesium - 06/30/16 16:15 Magnesium 1.6 mg/dL 1.8-2.4 Serum or plasma troponin i.cardiac measurement (mass/volume) - 06/30/16 16:15 Serum or plasma troponin i.cardiac measurement (mass/volume) < ng/mL <0.30 Comprehensive metabolic panel - 06/30/16 16:15 Serum or plasma sodium measurement (moles/volume) 139 mmol/ L 135-145 Serum or plasma potassium measurement (moles/volume) 4.1 mmol/L 3.6-5.0 Serum or plasma chloride measurement (moles/volume) 106 mmol /L 98-107 Carbon dioxide 23 mmol/L 21-32 Serum or plasma anion gap determination (moles/volume) 10 mmol/L 5-14 Serum or plasma urea nitrogen measurement (mass/volume) 25 mg/dL 7-18 Serum or plasma creatinine measurement (mass/volume) 1.62 mg /dL 0.60-1.30 Serum or plasma urea nitrogen/creatinine mass ratio 15 NRG Serum or plasma creatinine measurement with calculation of estimated glomerular filtration rate 44 NRG Serum or plasma glucose measurement (mass/volume) 94 mg/dL 70-105 Serum or plasma calcium measurement (mass/volume) 9.0 mg/dL 8.5-10.1 Serum or plasma total bilirubin measurement (mass/volume) 1.9 mg/dL 0.1-1.0 Serum or plasma alkaline phosphatase measurement (enzymatic activity/volume) 74 U/L 40-136 Serum or plasma aspartate aminotransferase measurement (enzymatic activity/ volume) 13 U/L 5-34 Serum or plasma alanine aminotransferase measurement (enzymatic activity/volume ) 13 U/L 0-55 Serum or plasma protein measurement (mass/volume) 5.9 g/dL 6.4-8.2 Serum or plasma albumin measurement (mass/volume) 3.6 g/dL 3.2-4.5 Serum or plasma lithium measurement (moles/volume) - 06/30/16 16:15 BNP level 855.5 pg/mL <100.0 Methicillin resistant Staphylococcus aureus (MRSA) screening culture - 08:17 Methicillin resistant Staphylococcus aureus (MRSA) screening culture NEG NRG PT panel in platelet poor plasma by coagulation assay - 07/18/16 08:51 Prothrombin time (PT) in platelet poor plasma by coagulation assay 16.8 s 12.2-14.7 INR in platelet poor plasma or blood by coagulation assay 1.4 0.8-1.4 Activated partial thromboplastin time (aPTT) in platelet poor plasma bycoagulation assay - 07/18/16 08:51 Activated partial thromboplastin time (aPTT) in platelet poor plasma bycoagulation assay 36 s 24-35 Comprehensive metabolic panel - 07/18/16 08:51 Serum or plasma sodium measurement (moles/volume) 137 mmol/ L 135-145 Serum or plasma potassium measurement (moles/volume) 4.1 mmol/L 3.6-5.0 Serum or plasma chloride measurement (moles/volume) 101 mmol /L 98-107 Carbon dioxide 25 mmol/L 21-32 Serum or plasma anion gap determination (moles/volume) 11 mmol/L 5-14 Serum or plasma urea nitrogen measurement (mass/volume) 34 mg/dL 7-18 Serum or plasma creatinine measurement (mass/volume) 1.76 mg /dL 0.60-1.30 Serum or plasma urea nitrogen/creatinine mass ratio 19 NRG Serum or plasma creatinine measurement with calculation of estimated glomerular filtration rate 40 NRG Serum or plasma glucose measurement (mass/volume) 105 mg/dL 70-105 Serum or plasma calcium measurement (mass/volume) 9.4 mg/dL 8.5-10.1 Serum or plasma total bilirubin measurement (mass/volume) 1.5 mg/dL 0.1-1.0 Serum or plasma alkaline phosphatase measurement (enzymatic activity/volume) 81 U/L 40-136 Serum or plasma aspartate aminotransferase measurement (enzymatic activity/ volume) 16 U/L 5-34 Serum or plasma alanine aminotransferase measurement (enzymatic activity/volume ) 15 U/L 0-55 Serum or plasma protein measurement (mass/volume) 7.1 g/dL 6.4-8.2 Serum or plasma albumin measurement (mass/volume) 4.0 g/dL 3.2-4.5 Lipid 1996 panel - 07/18/16 08:51 Serum or plasma triglyceride measurement (mass/volume) 72 mg /dL <150 Serum or plasma cholesterol measurement (mass/volume) 158 mg /dL < 200 Serum or plasma cholesterol in HDL measurement (mass/volume) 28 mg/dL 40-60 Cholesterol in LDL [mass/volume] in serum or plasma by direct assay 125 mg/dL 1-129 Serum or plasma cholesterol in VLDL measurement (mass/volume) 14 mg/dL 5-40 Automated blood complete blood count (hemogram) panel - 07/18/16 08:57 Blood leukocytes automated count (number/volume) 8.0 10*3/ uL 4.3-11.0 Blood erythrocytes automated count (number/volume) 5.49 10*6 /uL 4.35-5.85 Venous blood hemoglobin measurement (mass/volume) 14.7 g/dL 13.3-17.7 Blood hematocrit (volume fraction) 45 % 40-54 Automated erythrocyte mean corpuscular volume 82 [foz_us] 80-99 Automated erythrocyte mean corpuscular hemoglobin (mass per erythrocyte) 27 pg 25-34 Automated erythrocyte mean corpuscular hemoglobin concentration measurement ( mass/volume) 33 g/dL 32-36 Automated erythrocyte distribution width ratio 18.5 % 10.0-14.5 Automated blood platelet count (count/volume) 205 10*3/uL 130-400 Automated blood platelet mean volume measurement 12.7 [foz_ us] 7.4-10.4 Automated blood complete blood count (hemogram) panel - 07/19/16 03:40 Blood leukocytes automated count (number/volume) 6.2 10*3/ uL 4.3-11.0 Blood erythrocytes automated count (number/volume) 5.18 10*6 /uL 4.35-5.85 Venous blood hemoglobin measurement (mass/volume) 13.6 g/dL 13.3-17.7 Blood hematocrit (volume fraction) 43 % 40-54 Automated erythrocyte mean corpuscular volume 82 [foz_us] 80-99 Automated erythrocyte mean corpuscular hemoglobin (mass per erythrocyte) 26 pg 25-34 Automated erythrocyte mean corpuscular hemoglobin concentration measurement ( mass/volume) 32 g/dL 32-36 Automated erythrocyte distribution width ratio 18.0 % 10.0-14.5 Automated blood platelet count (count/volume) 188 10*3/uL 130-400 Automated blood platelet mean volume measurement 12.1 [foz_ us] 7.4-10.4 Whole blood basic metabolic panel - 07/19/16 03:40 Serum or plasma sodium measurement (moles/volume) 139 mmol/ L 135-145 Serum or plasma potassium measurement (moles/volume) 4.2 mmol/L 3.6-5.0 Serum or plasma chloride measurement (moles/volume) 105 mmol /L 98-107 Carbon dioxide 22 mmol/L 21-32 Serum or plasma anion gap determination (moles/volume) 12 mmol/L 5-14 Serum or plasma urea nitrogen measurement (mass/volume) 35 mg/dL 7-18 Serum or plasma creatinine measurement (mass/volume) 1.63 mg /dL 0.60-1.30 Serum or plasma urea nitrogen/creatinine mass ratio 21 NRG Serum or plasma creatinine measurement with calculation of estimated glomerular filtration rate 44 NRG Serum or plasma glucose measurement (mass/volume) 99 mg/dL 70-105 Serum or plasma calcium measurement (mass/volume) 8.7 mg/dL 8.5-10.1 Encounters ACCT No. Visit Date/Time Discharge Status Pt. Type Provider Facility Loc./Unit Complaint [id number] 07/18/2016 08:08:00 2016 16:30:00 DIS Outpatient GEOVANI FORTUNE [facility] CATH CAD,SOB,CARDIOMYOPATHY, FATIGUE [id number] 06/30/2016 15:50:00 2016 18:40:00 DIS Emergency CATHY COOLEY APRN [facility] ER HERNIA [id number] 01/21/2015 07:06:00 2014 23:59:59 CLS Outpatient WILMA CASANOVA FACC, JA SPAULDING CCDS [facility] CARD CHEST PAIN, HTN, HLD, PAROXYSMAL AFIB [id number] 01/05/2015 19:18:00 2014 22:34:00 DIS Emergency TRENTRORY Paiz DO [facility] ER CHEST PAIN AFTER EATING [id number] 08/13/2013 15:07:00 2013 23:59:59 CLS Outpatient GEOVANI FORTUNE [facility] LAB HYPERLIPADEMA,MED MANGEMENT , [id number] 12/03/2012 09:40:00 2012 23:59:59 CLS Outpatient GEOVANI FORTUNE [facility] CARD [id number] 11/11/2012 10:10:00 2012 23:59:59 CLS Outpatient GEOVANI FORTUNE [facility] LAB [id number] 11/04/2012 10:24:00 2012 23:59:59 CLS Outpatient WILMA CASANOVA FACC, JA SPAULDING CCDS [facility] LAB [id number] 10/09/2012 19:19:00 2012 15:30:00 DIS Inpatient WILMA CASANOVA FACC, JA SPAULDING CCDS [facility] CSD [id number] 07/18/2016 07:45:00 PEN Preadmit WILMA CASANOVA FACC , JA SPAULDING CCDS [facility] CARD PAROXYSMAL AFIB [id number] 07/14/2016 13:04:00 ACT Outpatient WILMA CASANOVA FACC, JA SPAULDING CCDS [facility] CARD PAROXYSMAL AFIB
== END 2016-07-19 16:30 | disposition home or self-care (01) ==
LOC: CATH 08:08 → CSD 11:57 → CATH 07-19 16:30
PROVIDERS: ATTEND Nurse Practitioner Family
DX: I50.22 Chronic systolic (congestive) heart failure (principal); I42.9 Cardiomyopathy, unspecified; I25.10 Atherosclerotic heart disease of native coronary artery without angina pectoris; I48.91 Unspecified atrial fibrillation; N18.9 Chronic kidney disease, unspecified; E66.9 Obesity, unspecified; I12.9 Hypertensive chronic kidney disease with stage 1 through stage 4 chronic kidney disease, or unspecified chronic kidney disease; E78.5 Hyperlipidemia, unspecified; Z68.37 Body mass index [BMI] 37.0-37.9, adult; Z79.01 Long term (current) use of anticoagulants; Z79.899 Other long term (current) drug therapy
CPT/HCPCS: 36415; 80048; 80053; 80061; 85027; 85610; 85730; 87081; 93005; 93458

== ENCOUNTER → 2016-09-25 | Outpatient (CLI) | payer BC ==
[~2016-09-25] MED LIST changes: +ALPH1TAB8 PO; +APIX5TAB PO; +DILT240C53 PO; +FURO40TA4 PO; +LISI-552 PO; +METO-274 PO; +PANT40TA3 PO; +POTA10TA10 PO
== END ==
LOC: CARD 07:54
PROVIDERS: ATTEND Nurse Practitioner Family
DX: I42.0 Dilated cardiomyopathy (principal); I48.0 Paroxysmal atrial fibrillation; I50.22 Chronic systolic (congestive) heart failure; I11.0 Hypertensive heart disease with heart failure

== ENCOUNTER 2016-10-31 20:00 | Outpatient (CLI) | payer BC ==
[~2016-10-31 20:00] MED LIST changes: -METO-274 PO; +METO-395 PO
== END 2016-11-01 06:17 | disposition home or self-care (01) ==
LOC: SLEEP 20:00
PROVIDERS: ATTEND Nurse Practitioner
DX: G47.10 Hypersomnia, unspecified (principal); I10 Essential (primary) hypertension
CPT/HCPCS: 95811

== ENCOUNTER → 2016-12-14 | Outpatient (CLI) | payer BC ==
[~2016-12-14] MED LIST changes: +METO-274 PO; -METO-395 PO
== END ==
LOC: CARD 15:21
PROVIDERS: ATTEND Nurse Practitioner Family
DX: I42.0 Dilated cardiomyopathy (principal); I48.0 Paroxysmal atrial fibrillation; G47.39 Other sleep apnea; I10 Essential (primary) hypertension
CPT/HCPCS: 93306

== ENCOUNTER → 2017-11-01 | Outpatient (CLI) | payer BC ==
[~2017-11-01] MED LIST changes: -METO-274 PO; +METO-395 PO
[2017-11-01 16:40] LABS: CALCIUM 9.5 MG/DL (8.5-10.1); CREATININE SERUM 1.62 MG/DL (0.60-1.30); MAGNESIUM 1.9 MG/DL (1.8-2.4); POTASSIUM 3.8 MMOL/L (3.6-5.0)
== END ==
LOC: LAB 16:03
PROVIDERS: ATTEND Nurse Practitioner Family
DX: I48.0 Paroxysmal atrial fibrillation (principal); G47.30 Sleep apnea, unspecified; I25.10 Atherosclerotic heart disease of native coronary artery without angina pectoris; I42.0 Dilated cardiomyopathy; E66.09 Other obesity due to excess calories
CPT/HCPCS: 36415; 80048; 83735

== ENCOUNTER → 2018-03-26 | Outpatient (CLI) | payer BC | LOC: CARD 13:19 | PROVIDERS: ATTEND Nurse Practitioner Family | DX: I42.0 Dilated cardiomyopathy (principal); I25.10 Atherosclerotic heart disease of native coronary artery without angina pectoris; I10 Essential (primary) hypertension; E78.5 Hyperlipidemia, unspecified; I48.0 Paroxysmal atrial fibrillation; G47.30 Sleep apnea, unspecified | CPT/HCPCS: 93225; 93226; 93306 ==

== ENCOUNTER 2018-10-27 18:23 | Inpatient (IN) | payer BC | END 2018-11-02 11:50 | disposition home or self-care (01) | LOC: ICU 10-29 09:20 → 4TH 11-01 15:00 → ICU 20:24 → 4TH 11-02 03:46 → ER 18:23 → ICU 10-29 09:54 ==

== ENCOUNTER → 2019-05-07 | Outpatient (CLI) | payer BC, OTHER ==
[~2019-05-07] MED LIST changes: +ALLO100T PO; +AMIO200T4 PO; +DILT120C88 PO; +ERGO50006 PO; +FURO20TA4 PO; +LISI10TA2 PO; -METO-395 PO; +MTP100TCR PO; +POTA10TA36 PO; +SIME125C PO
== END ==
LOC: CARD 10:03
PROVIDERS: ATTEND Nurse Practitioner Family
DX: I42.0 Dilated cardiomyopathy (principal); I25.10 Atherosclerotic heart disease of native coronary artery without angina pectoris; I48.0 Paroxysmal atrial fibrillation; G47.39 Other sleep apnea
CPT/HCPCS: 93306

== ENCOUNTER 2020-08-20 11:49 | Emergency (ER) | payer OTHER ==
[~2020-08-20] VITALS: Ht 172 cm; Wt 131.0 kg
[~2020-08-20 11:49] MED LIST changes: -AMIO200T4 PO; +AMIO200T6 PO; -LISI-552 PO; -LISI10TA2 PO; +LISI10TA25 PO; +LISI20TA26 PO; -PANT40TA3 PO; +PANT40TA52 PO
--- NOTE | 2020-08-20 12:20 | ED Dyspnea ---
General Chief Complaint: Respiratory Problems Stated Complaint: SOB Source of Information: Patient, Old Records History of Present Illness Date Seen by Provider: August 20, 2020 Time Seen by Provider: 11:54 Initial Comments 65-year-old male presenting with shortness of breath with exertion over the last few weeks. He states that he has a history of having heart failure and 2013 in 2015. He follows with Dr. Naranjo for cardiology. His primary care doctor is Dr. PARSONS out of [facility]. He has not been having any chest pain, fever, chills, nausea, cough with sputum production, nasal drainage, sore throat, ill contacts. He states he has had some additional gas and bloating because of having to stop a stomach acid medicine due to [employer] not carrying it anymore. He has not had any increased swelling in his legs from normal. He states he always has some swelling to his left leg from varicose veins. He reports calling Dr. Naranjo this morning and they told him to come to be checked for Covid. Timing/Duration: Waxing and Waning (over the last 2-3 weeks) Severity: Moderate Activities at Onset: Activity (worse with activity) Prior Episodes/Possible Cause: Other (history of shortness of breath with exertion when he had heart failure in the past) Modifying Factors: Worse With Activity Allergies and Home Medications Allergies Coded Allergies: No Known Drug Allergies (Unverified , 10/27/18) Home Medications Allopurinol 100 Mg Tablet, 200 MG PO HS, (Reported) TAKES 2 (100MG) TABLETS [id number] 150 Unit Tablet, 1 TAB PO DAILY, (Reported) Amiodarone HCl 200 Mg Tablet, 200 MG PO DAILY Prescribed by: TITA BRADSHAW on 11/02/18 0847 Apixaban 5 Mg Tablet, 5 MG PO BID, (Reported) Diltiazem HCl 120 Mg Cap.er.24h, 120 MG PO DAILY Prescribed by: TITA BRADSHAW on 11/02/18 0847 Ergocalciferol (Vitamin D2) 50,000 Unit Capsule, 50,000 UNITS PO [place], (Reported) Furosemide 20 Mg Tablet, 20 MG PO Q48H, (Reported) Furosemide 40 Mg Tablet, 40 MG PO DAILY Prescribed by: HAVEN POLANCO on 08/20/20 1406 Lovastatin 20 Mg Tablet, 20 MG PO HS, (Reported) Metoprolol Succinate 50 Mg Tab.er.24h, 50 MG PO HS, (Reported) TAKES 100MG TABLET IN THE MORNING AND THE 50MG TABLET AT BEDTIME Metoprolol Succinate 100 Mg Tab.er.24h, 100 MG PO DAILY, (Reported) TAKES 100MG TABLET IN THE MORNING AND THE 50MG TABLET AT BEDTIME Pantoprazole Sodium 40 Mg Tablet.dr, 40 MG PO HS, (Reported) Potassium Chloride 10 Meq Tab.er.prt, 10 MEQ PO DAILY, (Reported) Simethicone 125 Mg Capsule, 125 MG PO DAILY, (Reported) Spironolactone 25 Mg Tablet, 25 MG PO DAILY Prescribed by: HAVEN POLANCO on 08/20/20 1406 Patient Home Medication List Home Medication List Reviewed: Yes Review of Systems Review of Systems Constitutional: No chills, No diaphoresis, No dizziness, No fever EENTM: No epistaxis, No nose congestion, No throat pain Respiratory: see HPI, cough (non-productive), dyspnea on exertion; No hemoptys is, No orthopnea; short of breath; No stridor, No wheezing Cardiovascular: No chest pain; edema (chronic and no worse than normal for him. More in left leg than right) Gastrointestinal: No abdominal pain, No nausea, No vomiting Genitourinary: no symptoms reported Musculoskeletal: no symptoms reported Skin: no symptoms reported Psychiatric/Neurological: No Symptoms Reported Endocrine: No Symptoms Reported Hematologic/Lymphatic: Easy Bleeding (on blood thinner), Easy Bruising (on blood thinner) Past Xcxztbd-Uzrryw-Wkckav Hx Past Med/Social Hx: Reviewed Nursing Past Med/Soc Hx Patient Social History Type Used: Cigarettes Former Smoker, Quit: Jul 19, 1987 2nd Hand Smoke Exposure: No Recent Hopitalizations: No Immunizations Up To Date Date of Pneumonia Vaccine: Oct 15, 2012 Seasonal Allergies Seasonal Allergies: No Past Medical History Surgeries: Yes (KNEE ARTHROSCOPY, CARDIAC CATH. ) Orthopedic Respiratory: No Cardiac: Yes (CHF, ) Atrial Fibrillation, Cardiomyopathy, Chronic Edema/Swelling (left greater than right), Hypertension Neurological: No Reproductive Disorders: No Gastrointestinal: Yes (HERNIA) Abdominal Hernia, Gastroesophageal Reflux Musculoskeletal: No Endocrine: Yes (OBESITY) HEENT: No Cancer: No Psychosocial: No Integumentary: No Blood Disorders: No Adverse Reaction/Blood Tranf: No Family Medical History Cardiovascular disease 19 FATHER 19 MOTHER Diabetes mellitus 19 FATHER 19 MOTHER Myocardial infarction 19 FATHER Heart Disease, Stroke Physical Exam Vital Signs Vital Signs - First Documented 08/20/20 12:04 Temp 36.2 Pulse 54 Resp 17 B/P (MAP) 125/74 (91) Pulse Ox 100 O2 Delivery Room Air Capillary Refill : Height, Weight, BMI Height: 5'8.00" Weight: 262lbs. 6.0oz. 118.712708un; 39.9 BMI Method:Stated General Appearance: No Apparent Distress, WD/WN, Obese HEENT: PERRL/EOMI, Pharynx Normal Neck: Full Range of Motion, Supple Respiratory: Chest Non Tender, Lungs Clear, Normal Breath Sounds, No Accessory Muscle Use, No Respiratory Distress Cardiovascular: Normal Peripheral Pulses, Bradycardia Gastrointestinal: No Pulsatile Mass, Non Tender, Soft Rectal: Deferred Extremity: Normal Capillary Refill, Pedal Edema (trace pedal edema left greater than right) Neurologic/Psychiatric: Alert, Oriented x3, No Motor/Sensory Deficits, fourdrinier tender II- XII Norm as Tested Skin: Normal Color, Warm/Dry Progress/Results/Core Measures Results/Orders Lab Results Laboratory Tests Test 08/20/20 12:05 Range/Units White Blood Count 5.5 4.3-11.0 10^3/uL Red Blood Count 5.02 4.35-5.85 10^6/uL Hemoglobin 13.0 L 13.3-17.7 G/DL Hematocrit 42 40-54 % Mean Corpuscular Volume 84 80-99 FL Mean Corpuscular Hemoglobin 26 25-34 PG Mean Corpuscular Hemoglobin Concent 31 L 32-36 G/DL Red Cell Distribution Width 18.8 H 10.0-14.5 % Platelet Count 163 130-400 10^3/uL Mean Platelet Volume 11.1 H 7.4-10.4 FL Immature Granulocyte % (Auto) 1 % Neutrophils (%) (Auto) 74 42-75 % Lymphocytes (%) (Auto) 15 12-44 % Monocytes (%) (Auto) 8 0-12 % Eosinophils (%) (Auto) 2 0-10 % Basophils (%) (Auto) 0 0-10 % Neutrophils # (Auto) 4.1 1.8-7.8 X 10^3 Lymphocytes # (Auto) 0.8 L 1.0-4.0 X 10^3 Monocytes # (Auto) 0.5 0.0-1.0 X 10^3 Eosinophils # (Auto) 0.1 0.0-0.3 10^3/uL Basophils # (Auto) 0.0 0.0-0.1 10^3/uL Immature Granulocyte # (Auto) 0.1 0.0-0.1 10^3/uL Prothrombin Time 16.7 H 12.2-14.7 SEC INR Comment 1.3 0.8-1.4 Activated Partial Thromboplast Time 35 24-35 SEC Sodium Level 138 135-145 MMOL/L Potassium Level 4.1 3.6-5.0 MMOL/L Chloride Level 104 98-107 MMOL/L Carbon Dioxide Level 25 21-32 MMOL/L Anion Gap 9 5-14 MMOL/L Blood Urea Nitrogen 17 7-18 MG/DL Creatinine 1.37 H 0.60-1.30 MG/DL Estimat Glomerular Filtration Rate 52 BUN/Creatinine Ratio 12 Glucose Level 128 H 70-105 MG/DL Calcium Level 9.2 8.5-10.1 MG/DL Corrected Calcium 9.3 8.5-10.1 MG/DL Magnesium Level 1.9 1.6-2.4 MG/DL Total Bilirubin 1.0 0.1-1.0 MG/DL Aspartate Amino Transf (AST/SGOT) 19 5-34 U/L Alanine Aminotransferase (ALT/SGPT) 20 0-55 U/L Alkaline Phosphatase 73 40-136 U/L Troponin I < 0.30 <0.30 NG/ML C-Reactive Protein 1.27 H <0.50 MG/DL Pro-B-Type Natriuretic Peptide 1195.0 H <75.0 PG/ML Total Protein 7.0 6.4-8.2 GM/DL Albumin 3.9 3.2-4.5 GM/DL My Orders Orders - HAVEN POLANCO MD Cbc With Automated Diff (08/20/20 12:13) Comprehensive Metabolic Panel (08/20/20 12:13) Magnesium (08/20/20 12:13) Chest Pa/Lat (2 View) (08/20/20 12:13) Ekg Tracing (08/20/20 12:13) O2 (08/20/20 12:13) Ed Iv/Invasive Line Start (08/20/20 12:13) Monitor-Rhythm Ecg Trace Only (08/20/20 12:13) Crp Fs (08/20/20 12:13) Troponin I Fs (08/20/20 12:13) Probnp Fs (08/20/20 12:13) Protime With Inr (08/20/20 12:13) Partial Thromboplastin Time (08/20/20 12:13) Vital Signs/I&O 08/20/20 08/20/20 12:04 13:57 Temp 36.2 36.4 Pulse 54 45 Resp 17 16 B/P (MAP) 125/74 (91) 102/54 Pulse Ox 100 99 O2 Delivery Room Air Room Air Progress Progress Note #1: Progress Note Check basic labs as well as chest x-ray. Obtain cardiogram with his complaint of increased shortness of breath. Currently he was not expressing any symptoms that were consistent with Covid however if he wanted tested for that after his cardiac tests were back we could send one but it would take 24 to 48 hours before the results would be back. Differential diagnosis includes congestive heart failure, myocardial infarction, pneumonia, COPD, bradycardia causing dyspnea on exertion, medication induced bradycardia Progress Note #2: Time: 13:13 Progress Note X-ray does not demonstrate any acute infiltrate or pulmonary edema but does show cardiomegaly. His labs appear stable without acute significant abnormality other than mild elevation of his creatinine to 1.37. He has a negative troponin at less than 0.3. His heart rate continues to run low but it is sinus bradycardia on telemetry and ECG. He continues to run oxygen saturations at 100% on room air. Will call and check with Dr. Carrasco to see if he has any other recommendations. Progress Note #3: Time: 13:26 Progress Note After reviewing the case with Dr. Carrasco, he reviewed the chart and recommended having the patient stop his diltiazem or Cardizem for now. Decrease his metoprolol extended release 100 mg twice a day down to once a day. These things should help improve his heart rate and blood pressure. Start Lasix every day and spironolactone to act as a potassium sparing medication. Recommended giving him Lasix and potassium here in the ED. Have him follow-up Sunday in the clinic for recheck. When I reviewed these recommendations with the patient he wanted to hold off on Lasix here and said he could take some when he got home. 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 He will call to see if can set up appt. Initial ECG Impression Date: August 20, 2020 Initial ECG Impression Time: 12:04 Initial ECG Rate: 45 Initial ECG Rhythm: S.Charlie Initial ECG Comparisson: No Previous ECG Available Comment Incomplete left bundle branch block with a heart rate of 45 bpm. FL interval 15 6 ms. Borderline prolonged QT interval with a QT interval of 573 ms and a QTc interval 496 ms. No prior tracing immediately available for comparison. No acute ST elevation. Diagnostic Imaging Diagonstic Imaging: Xray Plain Films/CT/US/NM/MRI: chest Comments NAME: SOPHIA ELLSWORTH MED REC#: [id number] PT STATUS: REG ER : 1955 PHYSICIAN: HAVEN POLANCO MD ADMIT DATE: 08/20/20/ER FS Draft Date of Exam:08/20/20 CHEST PA/LAT (2 VIEW) Clinical indication: Patient with shortness of breath x2 weeks with exertion. Exam: Chest x-ray PA and lateral views. Comparisons: Chest x-ray dated 11/01/2018. Findings: Lungs/pleura: Lungs are clear. There is no pneumothorax. There is no pleural effusion. Mediastinum: Unremarkable. Pulmonary vasculature: Unremarkable. Heart: Stable appearing cardiomegaly. Bones/extrathoracic soft tissue: There are hypertrophic degenerative osteophytes scattered throughout the thoracic spine. Impression: 1: There is no interval evidence of acute cardiopulmonary process. 2: There is cardiomegaly with no significant pulmonary vascular congestion. Dictated on workstation # [id number] Dict: 08/20/20 1228 Trans: 08/20/20 1230 [facility] [id number] Interpreted by: EMI ROJAS MD Electronically signed by: Departure Impression Primary Impression: Dyspnea on exertion Additional Impressions: Congestive heart failure (CHF) Qualified Codes: I50.9 - Heart failure, unspecified Sinus bradycardia on ECG Disposition: 01 HOME, SELF-CARE Condition: Stable Departure-Patient Inst. Decision time for Depature: 14:01 Referrals: JA CARRASCO MD FACP [facility] PAONI,ROLANDO S DO (PCP/Family) Primary Care Physician Patient Instructions: Shortness of Breath, Adult ED, Heart Failure, Adult (DC) Add. Discharge Instructions: Dr. Carrasco would like to see you on Sunday for follow up of your heart failure and change in medicines. Call this afternoon and let the production control scheduler know that you were in the ER and Dr. Carrasco wants you to be seen in clinic Sunday so they can get you an appointment time. Stop taking the Cardizem (Diltiazem) medicine. Decrease your Metoprolol from 100 mg twice a day to once a day. Start taking the Furosemide (Lasix) 40 mg once a day to help with heart failure and your breathing. Take Spironolactone 25 mg once a day. This will help with your heart failure and help balance out potassium lost with the Furosemide (Lasix). All discharge instructions reviewed with patient and/or family. Voiced understanding. Scripts Spironolactone (Spironolactone) 25 Mg Tablet 25 MG PO DAILY for Heart Failure for 30 Days, #30 TAB 0 Refills Prov: HAVEN POLANCO MD 08/20/20 Furosemide (Furosemide) 40 Mg Tablet 40 MG PO DAILY for Heart failure for 30 Days, #30 TAB 0 Refills Prov: HAVEN POLANCO MD 08/20/20 HAVEN POLANCO MD August 20, 2020 12:20
--- NOTE | 2020-08-20 12:30 | Diagnostic Imaging Report ---
Clinical indication: Patient with shortness of breath x2 weeks with exertion. Exam: Chest x-ray PA and lateral views. Comparisons: Chest x-ray dated 11/01/2018. Findings: Lungs/pleura: Lungs are clear. There is no pneumothorax. There is no pleural effusion. Mediastinum: Unremarkable. Pulmonary vasculature: Unremarkable. Heart: Stable appearing cardiomegaly. Bones/extrathoracic soft tissue: There are hypertrophic degenerative osteophytes scattered throughout the thoracic spine. Impression: 1: There is no interval evidence of acute cardiopulmonary process. 2: There is cardiomegaly with no significant pulmonary vascular congestion. Dictated by: Dictated on workstation # [id number]
[2020-08-20 12:34] LABS: EOSINOPHILS % (AUTO) 2 % (0-10); HEMATOCRIT 42 % (40-54); LYMPHOCYTES % (AUTO) 15 % (12-44); MEAN CORPUSCULAR HEMOGLOBIN 26 PG (25-34); MEAN CORPUSCULAR HGB CONC 31 G/DL (32-36); MEAN CORPUSCULAR VOLUME 84 FL (80-99); MEAN PLATELET VOLUME 11.1 FL (7.4-10.4); MONOCYTES % (AUTO) 8 % (0-12); NEUTROPHILS % (AUTO) 74 % (42-75); PLATELET COUNT 163 10^3/uL (130-400); WHITE BLOOD COUNT 5.5 10^3/uL (4.3-11.0)
[2020-08-20 12:35] LABS: BASOPHILS % (AUTO) 0 % (0-10); EOSINOPHILS # (AUTO) 0.1 10^3/uL (0.0-0.3); LYMPHOCYTES # (AUTO) 0.8 X 10^3 (1.0-4.0); MONOCYTES # (AUTO) 0.5 X 10^3 (0.0-1.0); NEUTROPHILS # (AUTO) 4.1 X 10^3 (1.8-7.8)
[2020-08-20 12:36] LABS: INR 1.3 (0.8-1.4); PROTHROMBIN TIME PATIENT 16.7 SEC (12.2-14.7)
[2020-08-20 12:58] LABS: CALCIUM 9.2 MG/DL (8.5-10.1); CREATININE SERUM 1.37 MG/DL (0.60-1.30); MAGNESIUM 1.9 MG/DL (1.6-2.4); POTASSIUM 4.1 MMOL/L (3.6-5.0)
[2020-08-20 12:59] LABS: ALBUMIN 3.9 GM/DL (3.2-4.5)
[2020-08-20 13:57] VITALS: BP 102/54
[2020-08-20] MEDS ORDERED: FURO40TA4 PO (14:06)
[2020-08-20] MEDS ORDERED: SPIR25TA5 PO (14:06)
== END 2020-08-20 14:08 | disposition home or self-care (01) ==
LOC: EDUNIT# 11:49 → ER FS 11:51
DX: R06.09 Other forms of dyspnea (principal); I11.0 Hypertensive heart disease with heart failure; I50.9 Heart failure, unspecified; R00.1 Bradycardia, unspecified; E66.9 Obesity, unspecified; K21.9 Gastro-esophageal reflux disease without esophagitis; I48.91 Unspecified atrial fibrillation; Z68.39 Body mass index [BMI] 39.0-39.9, adult; Z87.891 Personal history of nicotine dependence; Z79.899 Other long term (current) drug therapy; Z79.01 Long term (current) use of anticoagulants
CPT/HCPCS: 36415; 71046; 80053; 83735; 83880; 84484; 85025; 85610; 85730; 86141; 93005; 93041

== ENCOUNTER → 2021-03-09 | Outpatient (CLI) | payer OTHER ==
[~2021-03-09] MED LIST changes: -ALPH1TAB8 PO; -AMIO200T6 PO; +AMIO200T65 PO; +BEANO150 UNI1 PO; -POTA10TA36 PO; +POTA10TA37 PO; +SPIR25TA5 PO
== END ==
LOC: CARD 10:55
PROVIDERS: ATTEND Internal Medicine Cardiovascular Disease
DX: I34.0 Nonrheumatic mitral (valve) insufficiency (principal); I42.0 Dilated cardiomyopathy; I51.7 Cardiomegaly
CPT/HCPCS: 93306

== ENCOUNTER → 2021-08-18 | Outpatient (CLI) | payer OTHER ==
[2021-08-18 11:59] LABS: BASOPHILS # (AUTO) 0.1 10^3/uL (0.0-0.1); BASOPHILS % (AUTO) 1 % (0-10); EOSINOPHILS # (AUTO) 0.2 10^3/uL (0.0-0.3); EOSINOPHILS % (AUTO) 3 % (0-10); HEMATOCRIT 45 % (40-54); HEMOGLOBIN 14.6 g/dL (13.3-17.7); LYMPHOCYTES # (AUTO) 1.2 10^3/uL (1.0-4.0); LYMPHOCYTES % (AUTO) 15 % (12-44); MEAN CORPUSCULAR HEMOGLOBIN 28 pg (25-34); MEAN CORPUSCULAR HGB CONC 33 g/dL (32-36); MEAN CORPUSCULAR VOLUME 86 fL (80-99); MEAN PLATELET VOLUME 10.1 fL (9.0-12.2); MONOCYTES # (AUTO) 0.6 10^3/uL (0.0-1.0); MONOCYTES % (AUTO) 7 % (0-12); NEUTROPHILS # (AUTO) 5.7 10^3/uL (1.8-7.8); NEUTROPHILS % (AUTO) 72 % (42-75); PLATELET COUNT 187 10^3/uL (130-400); WHITE BLOOD COUNT 7.9 10^3/uL (4.3-11.0)
[2021-08-18 12:33] LABS: ALBUMIN 4.2 GM/DL (3.2-4.5); CALCIUM 9.6 MG/DL (8.5-10.1); CREATININE SERUM 1.5 MG/DL (0.60-1.30); POTASSIUM 5.1 MMOL/L (3.6-5.0)
[2021-08-18 15:28] LABS: PHOSPHORUS 3.9 MG/DL (2.3-4.7); URIC ACID 4.5 MG/DL (2.6-7.2)
== END ==
LOC: LAB FS 11:37
PROVIDERS: ATTEND Internal Medicine Nephrology
DX: I12.9 Hypertensive chronic kidney disease with stage 1 through stage 4 chronic kidney disease, or unspecified chronic kidney disease (principal); N18.31 Chronic kidney disease, stage 3a; E55.9 Vitamin D deficiency, unspecified; E79.0 Hyperuricemia without signs of inflammatory arthritis and tophaceous disease
CPT/HCPCS: 36415; 80069; 82306; 82570; 83970; 84156; 84550; 85025